=== PATIENT | male | born 1950 | race Caucasian/White ===

== ENCOUNTER 2024-10-30 07:37 | Day surgery (SDC) | payer MEDICARE, OTHER, SELFPAY ==
--- NOTE | 2024-10-30 09:57 | ITS.CL.CARDI ---
Sales Team Recruiter - Cardioversion
Cardioversion
Procedure Report:
Date of Procedure: 10/30/2024.
Procedure: Cardioversion.
Indication: Symptomatic Persistent atrial fibrillation.
Performing Physician: Melba Cantu MD
Technique: The patient was brought to the holding area. Signed informed consent was obtained. A time out was called and performed. The patient was sedated by a member of the anesthesia service. Anticoagulation status was reviewed and was
appropriate. CRISTIN was performed showing no evidence of spontaneous echo contrast or intracardiac thrombus.R-2 pads were placed anteriorly and posteriorly. A 200 J synchronized biphasic shock restored normal sinus rhythm without significant
bradycardia. There were no complications.
Conclusion: Uncomplicated cardioversion from persistent atrial fibrillation to sinus rhythm.
Recommendation: Routine post cardioversion care. Continue joint terminal attack controller anticoagulation.
cc: Dr. Shawn Guerrero
== END 2024-10-30 10:43 | disposition home or self-care (01) ==
LOC: CATH 07:37
PROVIDERS: ATTENDING PHYSICIAN Internal Medicine Cardiovascular Disease; FAMILY PHYSICIAN Internal Medicine; OTHER PHYSICIAN Internal Medicine Cardiovascular Disease
DX: I48.19 Other persistent atrial fibrillation (principal); I10 Essential (primary) hypertension; E78.5 Hyperlipidemia, unspecified; K21.9 Gastro-esophageal reflux disease without esophagitis; Z85.46 Personal history of malignant neoplasm of prostate; G47.33 Obstructive sleep apnea (adult) (pediatric); I34.1 Nonrheumatic mitral (valve) prolapse; Z79.01 Long term (current) use of anticoagulants; Z79.82 Long term (current) use of aspirin
CPT/HCPCS: 93312; 93320; 93325; 92960; 93005

== ENCOUNTER → 2024-12-28 08:01 | Outpatient (REF) | payer MEDICARE, OTHER, SELFPAY | LOC: RCS 08:01 | PROVIDERS: ATTENDING PHYSICIAN Internal Medicine Cardiovascular Disease; FAMILY PHYSICIAN Internal Medicine | DX: I48.0 Paroxysmal atrial fibrillation (principal); I10 Essential (primary) hypertension | CPT/HCPCS: 93306 ==

== ENCOUNTER → 2025-01-10 09:44 | Outpatient (REF) | payer MEDICARE, OTHER, SELFPAY ==
[2025-01-10 11:18] LABS: % Basophils 0.5 % (0-2); % Eosinophils 0.8 % (0-6); % Immature Granulocytes 0.4 % (0-0.5); % Lymphocytes 19.7 % (20.5-51.1); % Monocytes 6.8 % (1.7-9.3); % Neutrophils 71.8 % (42.2-75.2); Absolute Eosinophils 0.1 10^3/uL (0-0.7); Absolute Lymphocytes 1.4 10^3/uL (1.2-3.4); Absolute Monocytes 0.5 10^3/uL (0.1-0.6); Absolute Neutrophils 5.2 10^3/uL (1.4-6.5); Hematocrit 43.7 % (39.0-52.0); Hemoglobin 14.6 g/dL (13.0-18.0); Mean Corp Hgb Conc. 33.4 g/dL (33.0-37.0); Mean Corpuscular Hgb 29.7 pg (27.0-31.0); Mean Corpuscular Volume 88.8 fL (80.0-94.0); Mean Platelet Volume 11.2 fL (7.4-10.4); Nucleated Red Blood Cells % 0 % (-); Platelet Count 218 10^3/uL (130-400); Red Blood Cell Count 4.92 10^6/uL (4.70-6.10); Red Cell Dist. Width 13.2 % (11.5-14.5); White Blood Cell Count 7.3 10^3/uL (4.8-10.8)
[2025-01-10 11:26] LABS: INR 1.04; PT 14.1 Sec (11.4-14.6)
[2025-01-10 12:06] LABS: ALT (SGPT) 40 U/L (0-50); AST (SGOT) 31 U/L (17-59); Albumin 4.2 g/dl (3.5-5.0); Alkaline Phosphatase 79 U/L (38-126); Blood Urea Nitrogen 15 mg/dl (9-20); Calcium 10.4 mg/dl (8.4-10.2); Carbon Dioxide 29 mmol/L (22-30); Chloride 105 mmol/L (98-107); Glucose 110 mg/dl (70-99); Magnesium 2.3 mg/dl (1.6-2.3); Potassium 4.8 mmol/L (3.5-5.1); Sodium 142 mmol/L (135-145); Total Bilirubin 0.7 mg/dl (0.2-1.3); Total Protein 7.1 g/dl (6.3-8.2); eGFR > 60.00
== END ==
LOC: SDSPAT 09:44
PROVIDERS: ATTENDING PHYSICIAN Internal Medicine Cardiovascular Disease; FAMILY PHYSICIAN Internal Medicine
DX: I48.0 Paroxysmal atrial fibrillation (principal)
CPT/HCPCS: 36415; 80053; 83735; 85025; 85610; 86850; 86900; 86901; 93005

== ENCOUNTER 2025-01-31 06:10 | Day surgery (SDC) | payer MEDICARE, OTHER, SELFPAY ==
[2025-01-10 10:16] VITALS: BMI 32.0
--- NOTE | 2025-01-10 11:04 | HPS.HSE ---
Family Physician
-
Family Physician: NO INTERVIEW UNKNOWN
Chief Complaint
-
Paroxysmal atrial fibrillation.
History of Present Illness
The patient is a 74 year old male presenting today for paroxysmal atrial fibrillation. The patient reports palpitations and mild dyspnea with exertion likely secondary to this diagnosis. He previously underwent 2 CRISTIN-guided cardioversions
in February 2021 and October 2024 and pulmonary vein isolation in October 2021 for his arrhythmia. 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 He is currently on pharmacological therapy with
Metoprolol Succinate. He reports compliance with Eliquis for oral anticoagulation due to a CHADS-VASc of 4. He is interested in pursuing pulmonary vein isolation again for more definitive arrhythmia management. He denies any current complaints today
such as chest pain, shortness of breath at rest, nausea, vomiting, diarrhea, lightheadedness, dizziness, cough, sore throat, or fever.
Medical History
Past Medical History
Past Medical History: Reports Other
Additional Past Medical History:
1. Paroxysmal atrial fibrillation, status post pulmonary vein isolation, 10/2021, and CRISTIN-guided cardioversion x2; pharmacological therapy with Metoprolol Succinate and oral anticoagulation with Eliquis.
2. Hypertension.
3. Hyperlipidemia.
4. PACs.
5. Atrial fibrillation related cardiomyopathy, recovered.
6. Mild left ventricular hypertrophy.
7. Ascending aortic aneurysm, stable on serial imaging.
8. Mild valvular disease.
9. Venous varicosities, status post left lower extremity endovenous ablation.
10. Vasovagal syncope secondary to GI illness 2020.
11. Remote pericarditis.
12. Left lower extremity DVT, 1999, provoked after surgery.
13. Pulmonary nodule.
14. Obstructive sleep apnea, compliant with CPAP.
15. GERD.
16. Gastric and colon polyps.
17. Small hiatal hernia.
18. Diverticulosis.
19. Remote migraines.
20. Essential tremor.
21. Vertigo.
22. Peripheral neuropathy.
23. Lumbar herniated discs.
24. Prostate cancer, status post remote TURP.
25. Basal and squamous cell carcinoma, status post excision.
26. Erectile dysfunction.
27. Insomnia.
28. Anxiety.
29. Obesity, BMI 32.0.
Past Surgical History: Reports Other
Additional Past Surgical History:
1. Pulmonary vein isolation.
2. CRISTIN-guided cardioversion x2.
3. TURP.
4. Endovenous ablation.
4. Multiple colonoscopies.
5. Endoscopy.
Social History
Tobacco: Non-smoker
Alcohol: Other (He drinks 1 alcoholic beverage every 2 weeks. )
Living: Other (He lives with his partner in a 2 story home. )
Family History
Family History: Not pertinent
Allergies / Home Medications
Allergy/Medication List:
Home medications:
1. Atorvastatin 40 mg p.o. every evening.
2. Cholecalciferol 1000 units p.o. daily.
3. Eliquis 5 mg p.o. twice a day.
4. Escitalopram 10 mg p.o. daily.
5. Famotidine 20 mg p.o. every other day.
6. Gabapentin 400 mg p.o. twice a day.
7. Lisinopril 2.5 mg p.o. daily.
8. Lorazepam 0.25 mg p.o. twice a day.
9. Metoprolol Succinate 12.5 mg p.o. every evening.
10. Multivitamin 1 tablet p.o. daily.
11. Omeprazole 20 mg p.o. every other day.
12. Tadalafil 5 mg p.o. daily as needed.
13. Zolpidem 2.5 mg p.o. at bedtime.
Allergies: Guaifenesin. Neosporin. Penicillin.
Review of Systems
-
A 12 point ROS was completed and negative except as noted: Yes
Physical Exam
Vital Signs
Blood pressure 147/73. Heart rate 47. Respirations 18. Pulse ox 97% on room air.
Height 5 feet, 10 inches. Weight 101.1 kg. BMI 32.0.
Physical Exam
General: Well Developed, Well Nourished and No Apparent Distress
HEENT: NormoCephalic, Moist mucous membranes, Atraumatic and PERRLA
Respiratory: Clear
Cardiac: Bradycardia (with occasional ectopy. )
GI: Soft, Non Tender, Non Distended and Other (Obese. )
Musculoskeletal: No Edema and Normal Gait & Station
Skin: Warm and Dry
Neuro: AO x 3 and Nonfocal/grossly intact
Laboratory Results
-
DIAGNOSTIC STUDIES as of 01/10/2025: White blood cell count 7.3. Hemoglobin 14.6. Platelet count 218,000. PT 14.1. INR 1.04. Sodium 142. Potassium 4.8. BUN 15. Creatinine 0.9. Glucose 110. Calcium 10.4. Magnesium 2.3. AST 31. ALT 40. Albumin 4.2.
EKG 01/10/2025: Sinus bradycardia with PACs.
Echocardiogram 12/28/2024: Normal left ventricular size and systolic function. No regional wall motion abnormalities are seen. LV ejection fraction is 55-60%. Mild concentric left ventricular hypertrophy. Mild mitral regurgitation.
Stress echocardiogram 12/23/2022: Normal Stress Echocardiogram with normal hemodynamic response to exercise. Good exercise capacity for age. Overall, low risk stress test.
Impression/Plan
-
IMPRESSION/PLAN:
1. Paroxysmal atrial fibrillation: The patient is in need of pulmonary vein isolation with Dr. Shawn Guerrero on 01/31/2025. The benefits and risks of the procedure have been explained to the patient. The patient understands these risks and
wishes to proceed. He will not be required to undergo a pre-procedural transesophageal echocardiogram as he has been compliant with his home oral anticoagulation. He is aware to continue his Eliquis up until the night prior to his procedure. He will
take no medications the morning of his ablation.
[2025-01-31] VITALS (18 sets, daily range): BP systolic 135–156; BP diastolic 67–91; BMI 32.1
--- NOTE | 2025-01-31 08:00 | ITS.CL.ABL ---
Sample Builder - Ablation
Ablation
Procedure Report:
ELECTROPHYSIOLOGIC STUDY AND POSSIBLE ABLATION
DATE: January 31, 2025
Primary Care Physician: Dr Hernan Morrow
INDICATION:
Symptomatic Atrial Fibrillation.
Paroxysmal
HISTORY: See H and P.
Symptomatic AF, poorly controlled with attempted medical therapy.
He was seen at in January 2021 with gastroenteritis and new onset Afib. Conservative management of his atrial fibrillation was undertaken with maintaining oral anticoagulation and rate control and having him follow-up with his commodity merchant in
[place]. He underwent cardioversion February 26, [address] Carl in [place]. Interestingly, he had a transesophageal echo at the time of his cardioversion February 26 which demonstrated global left ventricular systolic dysfunction with ejection
fraction of 35%. Subsequent transthoracic echocardiogram 1 month later in March 2021 described normalization of left ventricular systolic function in sinus rhythm.�This likely represented atrial fibrillation related cardiomyopathy which improved with
restoring sinus rhythm.
Atrial fibrillation has been associated with development of heart failure with reduced ejection fraction.
He underwent PVI ablation on 10/29/21 without complications.
With maintaining sinus rhythm LV function fully recovered.
In early 2024 he recurred with symptomatic atrial fibrillation, dyspnea on exertion. He underwent transesophageal echo and cardioversion on October 20, 2024.
Owing to symptomatic recurrences of atrial fibrillation and also the association in his particular case of atrial fibrillation with the development of heart failure with reduced ejection fraction, he presents today for mapping and ablation for
atrial fibrillation.
HAS-BLED: 1
Age
CHADSVASc: 2
HTN
Age
PRESENTING RHYTHM: SR
HISTORY: See H and P.
Symptomatic AF, poorly controlled with attempted medical therapy.
ANTICOAGULATION: Eliquis 5 mg twice daily
'TIME-OUT': called and confirmed.
SEDATION/ANESTHESIA: provided via the anesthesia department using general anesthesia.
PROCEDURE:
Ultrasound Guidance with real-time visualization of needle insertion and vessel patency performed by la for femoral venous Vascular Access.
Under real-time US guidance, the needle was advanced with negative pressure into the vein. The needle was seen entering the vessel lumen with a good return of dark red flow, the syringe was removed, non-pulsatile, dark red blood low was noted and
the wire was passed without difficulty, then the needle was removed. US confirmed the wire was in the vein, not going into an artery,
Images were taken and saved for the patient's permanent record. Imaging findings typical femoral venous anatomy. Direct visualization of needle puncture into the femoral vein was observed and recorded.
A decapolar CS catheter was placed within the CS for mapping and pacing.
The intracardiac ultrasound catheter was positioned in the RA for continuous intracardiac ultrasound imaging.
Heparin bolus and infusion to target ACT at 300 -350 seconds was administered. Transseptal puncture was performed. This entailed advancing a sheath with dilator into the superior vena cava and withdrawing both (monitoring intracardiac ultrasound,
fluoroscopy and tip pressure) with the tip oriented toward the atrial septum. The fossa ovalis was engaged (indicated by sudden displacement of the sheath tip as well as tenting of the fossa seen on intracardiac ultrasound).
The SecurActive transseptal system was used. Left atrial catheter position was confirmed by echocardiographic imaging and fluoroscopy followed by RF delivery using the [employer] system resulting in successful LA access with pressure monitoring
demonstrating LA pressure waveforms (LA mean pressure 9 mm Hg). The sheath was advanced over the dilator and positioned in the left atrium.
he Quinn Grid multipolar mapping catheter was initially positioned through the transseptal sheath for high density mapping.
Geometry and voltage mapping was performed using the Quinn multipolar grid catheter. Ensite-X was utilized for three-dimensional electroanatomical mapping.
A 3-D map was created using Ensite-X in Voxel mode. A 3-D reconstructed CT image was compared to the 3-D Navex map to assist in anatomic evaluation, mapping and ablation.
Mapping demonstrates reconnection of the left-sided pulmonary veins, both the left superior and left inferior pulmonary veins. The right sided pulmonary veins were electrically isolated at the ostia of both the right superior and right inferior
veins. Mapping finds areas of patchy electrograms and fractionation at the anterior roof of the left atrium, the posterior wall of the left atrium and the floor/inferior posterior left atrium.
The SecurActive PFA catheter and system was used for cardiac ablation. Catheter positioning was guided and confirmed using both I.C.E. and fluoroscopy.
Ablation strategy included reisolation of the left sided pulmonary veins and addressing extra PV targets.
Energy applications in both the flower and basket configurations were used to reisolate the left-sided pulmonary veins.
Additional energy applications/additional ablation sets targeted extra PV contributors to atrial fibrillation.
Targets were identified with electroanatomical voltage mapping finding areas of low voltage and complex fractionated electrograms. These areas can be sites for the formation of rotors which can drive and maintain atrial fibrillation. These areas are
known to be significant contributors to initiation and perpetuation of atrial fibrillation.
Targets for additional PFA ablation included:
1. LA posterior wall
2. Mapping after posterior wall isolation continue to show targets at the anterior roof so an anterior roofline was completed
3. Mapping then showed several targets existing at the inferior/floor line so these areas were also targeted
Post ablation mapping additionally finds that all PVPs were eliminated at each vein demonstrating entrance block. Also pacing around the the circumference of the ostia was performed at 10 ma and 2.0 msec output to assess for exit block. This
demonstrated electrical isolation at each of the pulmonary vein ostia (LSPV, LIPV, RSPV, RIPV).
At the completion of ablation at the targeted extra PV sites, post ablation mapping finds that the targeted complex fractionated electrograms are eliminated rendering the sites no longer able to contribute to atrial fibrillation. Post ablation high
output pacing at the targeted sites demonstrate lack of capture / exit block.
Programmed electrostimulation including burst atrial pacing as well as delivery of atrial decremental extrastimuli. With burst atrial pacing at 300 ms was able to induce atrial fibrillation which spontaneously terminated repeat stimulation found
that burst atrial pacing at 280 ms once again induced atrial fibrillation which was sustained and required cardioversion.
Extensive remapping was performed and found that electrical isolation persisted at all the targeted sites (left superior PV, left inferior PV, right superior PV, right inferior PV, posterior wall of the left atrium, anterior roofline of the left
atrium, inferior/floor line of the left atrium). No new targets were identified in the left atrium.
He has been having frequent PACs sometimes in a bigeminal pattern as well as short runs of paroxysmal atrial tachycardia with coronary sinus activation sequence suggesting right atrial origin and P wave morphology very similar to that of sinus
rhythm.
This was seen as a potential target for reinitiation of atrial fibrillation.
Catheters were withdrawn from the left atrium and hide entry electroanatomical mapping using the The Skimm grid catheter was performed in the right atrium. This identified earliest breakout of the PAC at the esha terminalis at a high to mid
location. Sinus rhythm was also mapped and earliest activation of sinus rhythm is approximately 1 cm superior and posterior to the targeted PAC.
The PAC was targeted and ablated with the femoral pulse system and an olive configuration. 3 lesions were given in and around the targeted site. This eliminated the PACs. There is no effect on sinus rhythm.
With the last energy delivery, atrial fibrillation ensued and was sustained, requiring cardioversion.
I.C.E. :
Pre-Ablation Post-Ablation
LVEF: 55 % 55 %
WMA: None None
Pericardial effusion: None None
COMPLICATIONS:
None
SUMMARY:
- Mapping and ablation to isolate the PVs
- Additional AF ablation set after PVI.
1. LA post wall
2. LA anterior roof line
3. LA floor line
- Mapping and ablation of second tachycardia
RA Esha terminalis PAC/ AT
- 3-D Electroanatomical Mapping
- Intracardiac Ultrasound
- Ultrasound guidance for vascular access
Post ablation, I discussed today's findings and results with the patient's partner, Clyde.
RECOMMENDATIONS:
- Observe in monitored bed.
- Maintain oral anticoagulation.
- If he were to have recurrence of atrial fibrillation, I do not think another mapping and ablation study would be that useful given today's findings. Neck step should consider antiarrhythmic drug therapy should he recur with atrial fibrillation.
No history of prior myocardial infarction but he has had cardiomyopathy which we think is atrial fibrillation based. Therefore I would try to avoid type Ic drugs
Normal renal function and ECG with normal QT interval so he would be a candidate for type III drugs. Given prior cardiomyopathy and heart failure I would favor dofetilide.
Amiodarone is an option but there is a concern for dose cumulative side effects.
- Aggressive AF risk factor modification to include strict compliance with CPAP therapy, abstinence from alcohol, dietary changes and routine aerobic exercise with an eye towards weight loss.
- Office visit with me will be scheduled for June 05, 2025
Copy to:
Dr Hernan Morrow
[2025-01-31 09:02] LABS: ACT-LR - POC 371 Seconds (116-155)
[2025-01-31 09:21] LABS: ACT-LR - POC 334 Seconds (116-155)
[2025-01-31 09:40] LABS: ACT-LR - POC 303 Seconds (116-155)
--- NOTE | 2025-01-31 12:26 | PTCARENOTE ---
Dr Guerrero at pt bedside speaking to pt and pt's partner.
--- NOTE | 2025-01-31 16:01 | W.PN.UPDATE ---
Update Note
Progress Note Update
74 yo WM s/p PV (same day). He denies cp,sob, zac diet, voiding, EKG SB, R fem site c/d/i, no HT. He will resume Eliquis tonight and continue metoprolol. Activity restrictions reviewed. He will f/u Dr. Rea in 3 mo. He is for d/c home after 3pm
== END 2025-01-31 15:00 | disposition home or self-care (01) ==
LOC: CATH 06:10
PROVIDERS: ATTENDING PHYSICIAN Internal Medicine Cardiovascular Disease; FAMILY PHYSICIAN Internal Medicine
DX: I48.0 Paroxysmal atrial fibrillation (principal); E66.9 Obesity, unspecified; E78.5 Hyperlipidemia, unspecified; F41.9 Anxiety disorder, unspecified; G25.0 Essential tremor; G47.33 Obstructive sleep apnea (adult) (pediatric); I11.0 Hypertensive heart disease with heart failure; I42.9 Cardiomyopathy, unspecified; Z68.32 Body mass index [BMI] 32.0-32.9, adult; Z79.01 Long term (current) use of anticoagulants; Z79.899 Other long term (current) drug therapy; Z86.0100 Personal history of colon polyps, unspecified; Z88.0 Allergy status to penicillin; Z86.718 Personal history of other venous thrombosis and embolism; I71.21 Aneurysm of the ascending aorta, without rupture; I83.90 Asymptomatic varicose veins of unspecified lower extremity; R55 Syncope and collapse; K57.90 Diverticulosis of intestine, part unspecified, without perforation or abscess without bleeding; R91.1 Solitary pulmonary nodule; G62.9 Polyneuropathy, unspecified; G47.00 Insomnia, unspecified
CPT/HCPCS: C1732; C1894; C1769; C1730; C1892; 85347; 93005; 93655; 93656; 93657; C1733; C1766

== ENCOUNTER 2025-02-04 10:19 | Emergency (ER) | payer MEDICARE, OTHER, SELFPAY ==
[2025-02-04 10:25] VITALS: BP 150/81
[2025-02-04 11:20] VITALS: BMI 31.3
--- NOTE | 2025-02-04 11:21 | ED.GENMED ---
History of Present Illness
General
Chief Complaint: Post Operative Problem(s)
Source: patient and records
Exam Limitations: none
Time Seen by Provider: 02/04/25 10:56
History of Present Illness
History of Present Illness:
74yoM with a history of atrial fibrillation on Eliquis, hypertension, hyperlipidemia presenting with his partner for evaluation of groin ecchymosis. Patient underwent ablation on 01/31/25 and the right groin was accessed. He started to notice
bruising to the right groin over the past few days. The bruising seems to be spreading gradually and is now present to the scrotal region. He spoke with his cardiology team and was advised to come to the ED for evaluation. He denies any
difficulty voiding. His Eliquis was resumed after the procedure.
Past History
Past History
ED Past Medical History: HTN, Hypercholesterolemia and Other (pericarditis)
ED Past Surgical History: Urological (prostatectomy)
Social History
Tobacco: Non-smoker
Alcohol: Occasional
Drug: None
Personal: Partner
Living: with family
Employment: Retired
Phy Exam
General Physical Exam
General Presentation: well appearing and no apparent distress
General Skin: warm and dry
General Habitus: normal
General Mental: alert
ENT Exam
ENT Exam: normocephalic
Pulmonary Exam
Pulmonary Exam: no respiratory distress
Neurological Exam
Neurological Exam: alert
[place] Coma Scale
Eye Opening: Spontaneous
Verbal Response: Oriented
Motor Response: Obeys Commands
GCS Total Score: 15
Musculoskeletal Exam
Musculoskeletal Exam: other (Bruising noted to the R groin extending to the mons and upper scrotal area. Groin soft and compressible. No pulsatile mass or palpable hematoma.)
Skin Exam
Skin Exam: warm/dry
Psychiatric Exam
Psychiatric Exam: normal mood/affect
Course
Orders/Labs/Results
Orders:
Orders
02/04/25 11:16
US Groin (vascular exam) RT Urgent
Comment:
Reason For Exam: Groin ecchymosis/swelling s/p ablation
02/04/25 11:24
Complete Blood Count/With Diff Urgent
Comprehensive Metabolic Panel Urgent
PTT Urgent
Prothrombin Time Urgent
Abnormal Lab Results
02/04/25
11:24
RBC 4.49 L 10^6/uL
(4.70-6.10)
MPV 10.7 H fL
(7.4-10.4)
Chloride 108 H mmol/L
(98-107)
02/04/25 11:24
02/04/25 11:24
Vital Signs
Initial and Last Documented VS:
Initial Vital Signs
Temp Pulse Resp BP Pulse Ox
97.8 F 58 16 150/81 98
02/04/25 10:25 02/04/25 10:25 02/04/25 10:25 02/04/25 10:25 02/04/25 10:25
Last Documented Vital Signs
Temp Pulse Resp BP Pulse Ox
97.8 F 49 11 123/80 98
02/04/25 10:25 02/04/25 13:00 02/04/25 13:00 02/04/25 13:00 02/04/25 13:00
MDM/Problems Addressed
Differential Diagnosis Includes:
74yoM here with R groin bruising after a cardiac ablation 4 days ago. R groin accessed during the procedure. Patient worried because the bruising seems to be gradually spreading. On Eliquis. On exam, there is ecchymosis without palpable hematoma.
Groin soft, compressible. Differential diagnosis includes but is not limited to: contusion, hematoma, pseudoaneurysm
Initial ED plan: Check CBC, CMP, coags, and vascular ultrasound of groin.
*Critical Care Note
Total Time (30-74mins, 75-104mins- exclusive of procedures): Not Applicable
Update Note
Update Note:
Labs unremarkable including normal hemoglobin and platelets. Results of ultrasound discussed with Dr. Flores, vascular surgeon. Ultrasound is normal without hematoma or pseudoaneurysm. Patient stable for discharge. Advised rest and monitoring at
home. Patient instructed to f/u with his PCP/buccaro and ED return precautions reviewed. Patient discharged in stable condition.
ED Attending Note
-
Portions of this chart may have been created with voice recognition software.� Occasional wrong word or��sound alike� substitutions may have occurred due to the inherent limitations of voice recognition software.
Discharge Plan
Departure
Patient Disposition: Home (Routine Discharge)
Date of Disposition: 02/04/25
Time of Disposition: 13:13
Patient with high blood pressure during this ER visit?: No
Discharge Problem:
Contusion of right groin
Instructions: Contusion
Prescriptions:
No Action
atorvastatin 40 MG tablet
40 mg PO QPM
tadalafil [Cialis] 10 MG tablet
5 mg PO DAILYPRN PRN (Reason: ED)
famotidine 40 MG tablet
40 mg PO Q48H
Patient Comments:
01/07/2021: ALTERNATES W/ OMEPRAZOLE
cholecalciferol (vitamin D3) 1,000 UNITS tablet
1,000 units PO DAILY
Eliquis 5 MG tablet
5 mg PO BID Qty: 60 0RF
metoprolol succinate 25 MG tablet extended release 24 hr
12.5 mg PO QPM
omeprazole 20 MG capsule,delayed release(DR/EC)
20 mg PO Q48H Qty: 0 0RF
Patient Comments:
01/07/2021: ALTERNATES W/ FAMOTIDINE
Rx Instructions:
Take daily for 30 days
escitalopram oxalate 10 mg Tablet
10 mg PO DAILY
multivitamin Tablet
1 tab PO DAILY
zolpidem 5 mg Tablet
2.5 - 5 mg PO HS PRN (Reason: sleep)
lisinopril 2.5 mg Tablet
2.5 mg PO DAILY
gabapentin 400 mg Tablet
800 mg PO BID
lorazepam 0.5 MG tablet
0.25 mg PO BIDPRN PRN (Reason: flying in airplane)
Patient Comments:
for flights/claustrophobia
Referrals:
Hernan Morrow MD [Family Provider]
Activity Restrictions/Additional Instructions:
Please follow-up with your family doctor or buccaro this week. Return to the ER with any new or worsening symptoms.
Interventions
Interventions:
*Risk Screen - Suicide Last Done: 02/04/25 10:25
*General Assessment Last Done: 02/04/25 12:09
*Neglect/Abuse Screening Last Done: 02/04/25 10:25
*ED- Fall Risk Assessment Last Done: 02/04/25 12:09
*ED COVID-19 Vaccine History Last Done: 02/04/25 12:09
*Nursing Disposition Last Done: 02/04/25 13:35
ED-Skin Assessment Last Done: 02/04/25 12:09
Discharge Date and Time
Discharge Date/Time: 02/04/25 13:35
Print Language: CZECH
[2025-02-04 11:23] VITALS: BP 140/72
[2025-02-04 11:36] LABS: % Basophils 0.5 % (0-2); % Immature Granulocytes 0.4 % (0-0.5); % Monocytes 7.2 % (1.7-9.3); % Neutrophils 69.9 % (42.2-75.2); Absolute Eosinophils 0.1 10^3/uL (0-0.7); Absolute Lymphocytes 1.7 10^3/uL (1.2-3.4); Absolute Monocytes 0.6 10^3/uL (0.1-0.6); Absolute Neutrophils 5.6 10^3/uL (1.4-6.5); Hematocrit 40.2 % (39.0-52.0); Hemoglobin 13.4 g/dL (13.0-18.0); Mean Corp Hgb Conc. 33.3 g/dL (33.0-37.0); Mean Corpuscular Hgb 29.8 pg (27.0-31.0); Mean Corpuscular Volume 89.5 fL (80.0-94.0); Mean Platelet Volume 10.7 fL (7.4-10.4); Nucleated Red Blood Cells % 0 % (-); Platelet Count 201 10^3/uL (130-400); Red Blood Cell Count 4.49 10^6/uL (4.70-6.10); Red Cell Dist. Width 13.6 % (11.5-14.5)
[2025-02-04 11:41] LABS: INR 1.05; PT 14.1 Sec (11.4-14.6)
[2025-02-04 11:42] LABS: APTT 27.9 Sec (23.4-35.0)
[2025-02-04 11:46] LABS: ALT (SGPT) 46 U/L (0-50); AST (SGOT) 35 U/L (17-59); Albumin 4.3 g/dl (3.5-5.0); Alkaline Phosphatase 79 U/L (38-126); Blood Urea Nitrogen 20 mg/dl (9-20); Calcium 9.4 mg/dl (8.4-10.2); Carbon Dioxide 29 mmol/L (22-30); Chloride 108 mmol/L (98-107); Estimated Creatinine Clearance 82 ml/min; Glucose 97 mg/dl (70-99); Potassium 4.2 mmol/L (3.5-5.1); Sodium 140 mmol/L (135-145); Total Bilirubin 1.1 mg/dl (0.2-1.3); Total Protein 6.9 g/dl (6.3-8.2); eGFR > 60.00
[2025-02-04 12:00] VITALS: BP 121/72
[2025-02-04 12:38] VITALS: BP 125/74
[2025-02-04 13:00] VITALS: BP 123/80
== END 2025-02-04 13:35 | disposition home or self-care (01) ==
LOC: EMR 10:19
PROVIDERS: Physician Assistant; EMERGENCY PHYSICIAN Emergency Medicine; FAMILY PHYSICIAN Internal Medicine
DX: S30.1XXA Contusion of abdominal wall, initial encounter (principal); X58.XXXA Exposure to other specified factors, initial encounter; I48.91 Unspecified atrial fibrillation; E78.00 Pure hypercholesterolemia, unspecified; I10 Essential (primary) hypertension; Z98.890 Other specified postprocedural states; Z79.01 Long term (current) use of anticoagulants; Z90.79 Acquired absence of other genital organ(s); Z88.0 Allergy status to penicillin; Z88.8 Allergy status to other drugs, medicaments and biological substances
CPT/HCPCS: 99284; 80053; 85025; 85610; 85730; 93926